=== PATIENT | female | born 1990 | race Caucasian/White ===

== ENCOUNTER 2021-05-28 17:58 | Emergency (ER) | payer OTHER, SELFPAY ==
--- NOTE | ~2021-05-28 | XR_ITS ---
EXAMINATION: XR wrist RT min 3V INDICATION: Right wrist pain TECHNIQUE: Four views of the right wrist are obtained. COMPARISON: None available FINDINGS: There is no fracture, dislocation, or subluxation. The bones, soft tissues, and joint space s are normal. IMPRESSION: 1. No acute osseous abnormality. Reviewed, dictated and finalized at location F.
[2021-05-28 18:01] VITALS: BP 155/101; PULSE 84; RESP 18; TEMP 36.6; O2SAT 100
[2021-05-28 20:06] VITALS: BP 164/101; PULSE 71; RESP 19; O2SAT 99
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
== END 2021-05-28 20:35 | disposition home or self-care (01) ==
LOC: ANHED 20:25
PROVIDERS: Emergency Provider Emergency Medicine
DX: S63.501A Unspecified sprain of right wrist, initial encounter (principal); V49.40XA Driver injured in collision with unspecified motor vehicles in traffic accident, initial encounter
CPT/HCPCS: 73110; 99283